=== PATIENT | female | born 1990 | race Caucasian/White ===

== ENCOUNTER 2017-06-25 09:19 | Emergency (ER) | payer OTHER ==
[~2017-06-25] VITALS: Ht 162.6 cm; Wt 54.4 kg
[~2017-06-25 09:19] MED LIST: ALPRAZOLAM1 MG PO; CELEXA10 MG PO; CEPHALEXIN500 MG PO; CITALOPRAM HBR20 MG PO; CYCLOBENZAPRINE10 MG PO; DICYCLOMINE HCL10 MG PO; DOXYCYCLINE HY100 MG PO; GABAPENTIN100 MG PO; HYDROCODON-ACE1 EA11 PO; IBUPROFEN400 MG PO; IBUPROFEN800 MG PO; KEFLEX500 MG PO; NORCO 5-325 TA1 EACH PO; PENICILLIN V P500 MG PO; PYRIDIUM200 MG PO; TRAMADOL HCL50 MG PO; WELLBUTRIN SR100 MG PO; XULANE PATCH1 EACH TD; ZOFRAN ODT4 MG SL; ZOFRAN4 MG PO
== END 2017-06-25 14:38 | disposition left against medical advice (07) ==
LOC: ED 09:19
DX: R10.9 Unspecified abdominal pain (principal); F41.9 Anxiety disorder, unspecified; F32.9 Major depressive disorder, single episode, unspecified; F31.9 Bipolar disorder, unspecified; F43.10 Post-traumatic stress disorder, unspecified; F17.200 Nicotine dependence, unspecified, uncomplicated; Z98.51 Tubal ligation status; Z79.899 Other long term (current) drug therapy; Z88.5 Allergy status to narcotic agent
CPT/HCPCS: 81001; 84703; 99283

== ENCOUNTER 2017-11-29 06:50 | Day surgery (SDC) | payer OTHER ==
[~2017-11-29] VITALS: Ht 162.6 cm; Wt 52.6 kg
[~2017-11-29 06:50] MED LIST changes: +ZOLOFT50 MG PO
--- NOTE | 2017-11-29 08:19 | NUR ---
PT RESTING IN BED WITH FAMILY IN SUPPORT. PT SEEMS ALERT AND ORIENTED, AND FAIRLY CALM. INFORMED REGARDING TODAY, BUT DID HAVE A QUESTION RELATING TO ANESTHESIA. CHINO MAHONEY CAME IN AND VISITED WITH BOTH OF THEM. WILL FOLLOW NEEDED
[2017-11-29] MEDS ORDERED: HYDROCODON-ACE1 EA11 PO (10:06)
[2017-11-29] MEDS ORDERED: DICLOFENAC SODI75 MG PO (10:07)
--- NOTE | 2017-11-29 10:19 | NUR ---
11/29/17 1019 Frannie Nava 1006 PT ARRIVED IN PACU SLEEPY C/O FEELING COLD. SADE PAW ON PT AND WARM BLANKETS.
--- NOTE | 2017-11-29 10:44 | NUR ---
PT BACK TO DS FROM PACU. PT IS AWAKE AND RATHER TALKATIVE. SHE IS UP OOB TO BATHROOM, SHE IS ABLE TO VOID QS WITHOUT ISSUES. CALL LIGHT WITHIN REACH. WATER ON BEDSIDE TABLE. NO OTHER C/O'S AT THIS TIME. WILL REASSESS WITHIN THE HOUR.
--- NOTE | 2017-11-30 08:24 | OR ---
[facility] [address] [facility] [place], [place] [address] Signed DATE OF OPERATION: 11/29/2017 SURGEON: Chalo Marshall MD PREOPERATIVE DIAGNOSIS: Painful hardware, right hand. POSTOPERATIVE DIAGNOSIS: Painful hardware, right hand. PROCEDURE PERFORMED: Removal of hardware, right hip. GRASSLAND CONSERVATIONIST: Amber Gabriel PA-C. Amber was present and critical for positioning, retraction, wound closure, and dressing application. ANESTHESIA: General. BLOOD LOSS: Minimal. TOURNIQUET TIME: 18 minutes. BRIEF HISTORY: Kayley is a 27-year-old female, who had suffered a fracture of her 5th metacarpal. She underwent an uneventful ORIF by me. She healed well, but continued to complain of pain and discomfort in the hand. She wished to have the plate removed. She also wished to have pictures taken of the plate in situ. Risks, benefits, and alternatives of this were discussed with her and she wished to proceed. DESCRIPTION OF PROCEDURE: Once consent was obtained, she was taken to the operating room. After adequate anesthesia, she was placed on operating table. A well-padded proximal arm tourniquet was placed. The arm was prepped and draped in a standard sterile fashion, exsanguinated using Esmarch bandage, and tourniquet inflated to 200 mmHg. The previous incision was marked out and incised longitudinally. The scar tissue was dissected down to the plate. The extensor tendon was carefully retracted and protected throughout the procedure. Electronically Signed By: CHALO MARSHALL MD 11/30/17 0824 PATIENT NAME: KAYLEY KAHN OPERATIVE REPORT DATE OF : 89 PHYSICIAN: CHALO MARSHALL MD REPORT #: [id number] REPORT IS CONFIDENTIAL AND NOT TO BE RELEASED WITHOUT AUTHORIZATION [facility] [address] [place] [id number] Signed The plate was cleaned off soft tissue. We then took the pictures with the patient's phone and removed the screws and the plate. The plate was carefully elevated from the bone. The fracture was completely healed. The screw holes were then curetted and irrigated. The wound was then closed with 3-0 Monocryl. Prior to closing it, we did take pictures again and the plate removed. We closed with 3-0 Monocryl and Dermabond mesh. She was dressed with Xeroform, 4 x 8, and gauze. She tolerated the procedure well. All sponge, needle, and instrument counts were correct. Chalo Marshall MD BA/LUKEL /[id number] Electronically Signed By: CHALO MARSHALL MD 11/30/17 0824 PATIENT NAME: KAYLEY KAHN OPERATIVE REPORT DATE OF : 89 PHYSICIAN: CHALO MARSHALL MD REPORT #: [id number] REPORT IS CONFIDENTIAL AND NOT TO BE RELEASED WITHOUT AUTHORIZATION
== END 2017-11-29 11:45 | disposition home or self-care (01) ==
LOC: DS 06:50 → OPS 06:50 → DS 09:00 → OPS 09:00
PROVIDERS: Specialist
PROC: 0PPP04Z Removal of Internal Fixation Device from Right Metacarpal, Open Approach (ICD-10-PCS; principal; 2017-11-29 09:00)
DX: T84.84XA Pain due to internal orthopedic prosthetic devices, implants and grafts, initial encounter (principal); F32.9 Major depressive disorder, single episode, unspecified; M79.7 Fibromyalgia; F17.200 Nicotine dependence, unspecified, uncomplicated; Z98.51 Tubal ligation status
CPT/HCPCS: 01820; J0690; J1885; J2250; J2405; J2704; J7120

== ENCOUNTER → 2018-02-23 | Emergency (ER) | payer OTHER ==
[~2018-02-23] VITALS: Ht 162.6 cm; Wt 529.3 kg
[~2018-02-23] MED LIST changes: +DICLOFENAC SODI75 MG PO
== END ==
LOC: ED 16:04
DX: R51 Headache (principal); R07.9 Chest pain, unspecified; R10.9 Unspecified abdominal pain; F41.9 Anxiety disorder, unspecified; F32.9 Major depressive disorder, single episode, unspecified; F43.10 Post-traumatic stress disorder, unspecified; G43.909 Migraine, unspecified, not intractable, without status migrainosus; F31.9 Bipolar disorder, unspecified; F17.200 Nicotine dependence, unspecified, uncomplicated; Z79.899 Other long term (current) drug therapy
CPT/HCPCS: 80053; 81001; 84703; 85025; 99283

== ENCOUNTER 2019-03-15 09:39 | Emergency (ER) | payer OTHER ==
[~2019-03-15] VITALS: Ht 162.6 cm; Wt 53.1 kg
[~2019-03-15 09:39] MED LIST changes: +ACETAMINOPHEN-1 EAC1 PO
--- OUTSIDE RECORDS SUMMARY | 2019-03-15 09:42 | XMS ---
PreManage Notification: KENDAL KAHN Security New Car Make Ready Worker Events No recent Security Events currently on file CRITERIA MET - Group Notification CARE PROVIDERS [facility] Treatment Current PHONE: Unknown Kaylen [place] Current Orthopedic Surgery \T\ Fracture Clinic PHONE: Unknown Leticia has no Care Guidelines for this patient. Ethan VISIT COUNT (12 MO.) 2 ER[facility]DA [facility] TOTAL 2 NOTE: Visits indicate total known visits. ED/UCC VISIT TRACKING (12 MO.) 03/15/2019 09:40 [facility] [place] TYPE: Emergency COMPLAINT: - L WRIST PAIN/NO INJURY 07/17/2018 05:44 [facility] [place] TYPE: Emergency COMPLAINT: - R FLANK PAIN DIAGNOSES: - Anxiety disorder, unspecified - Bipolar disorder, unspecified - Unspecified abdominal pain - Migraine, unspecified, not intractable, without status migrainosus - Post-traumatic stress disorder, unspecified - Major depressive disorder, single episode, unspecified - Personal history of nicotine dependence - Urinary tract infection, site not specified - Other skilled nursing (current) drug therapy INPATIENT VISIT TRACKING (12 MO.) No inpatient visits to display in this time frame [id number]
== END 2019-03-15 10:15 | disposition home or self-care (01) ==
LOC: ED 09:39
DX: M25.532 Pain in left wrist (principal)

== ENCOUNTER 2021-11-07 18:57 | Emergency (ER) | payer OTHER ==
[~2021-11-07] VITALS: Ht 162.6 cm; Wt 54.9 kg
--- OUTSIDE RECORDS SUMMARY | 2021-11-07 19:04 | XMS ---
PreManage Notification: KENDAL LOPEZ Security Process Helper Events No recent Security Events currently on file CRITERIA MET - Group Notification CARE PROVIDERS REED FARIA Physician Director [facility] Current PHONE: [phone] Leticia has no Care Guidelines for this patient. EMolly VISIT COUNT (12 MO.) 1 ERMELINDA Martin TOTAL 1 NOTE: Visits indicate total known visits. ED/UCC VISIT TRACKING (12 MO.) 11/07/2021 18:[address] [facility] [place] TYPE: Emergency COMPLAINT: - ABD PAIN INPATIENT VISIT TRACKING (12 MO.) No inpatient visits to display in this time frame [id number]
[2021-11-07] MEDS ORDERED: MOBIC15 MG PO (22:28)
[2021-11-07] MEDS ORDERED: CEFDINIR300 MG PO (22:28)
[2021-11-07] MEDS ORDERED: ONDANSETRON ODT8 MG PO (22:28)
== END 2021-11-07 23:40 | disposition home or self-care (01) ==
LOC: ED 18:57
DX: N12 Tubulo-interstitial nephritis, not specified as acute or chronic (principal); M79.7 Fibromyalgia; G43.909 Migraine, unspecified, not intractable, without status migrainosus; F17.200 Nicotine dependence, unspecified, uncomplicated; Z20.822 Contact with and (suspected) exposure to COVID-19; Z88.5 Allergy status to narcotic agent; Z88.6 Allergy status to analgesic agent
CPT/HCPCS: 74177; 80048; 81001; 83605; 84703; 85025; 96375; 99284-25; C9803; J0696; J2060; J2405; J7030; Q9967; U0003

== ENCOUNTER 2022-02-13 14:57 | Emergency (ER) | payer OTHER ==
[~2022-02-13] VITALS: Ht 162.6 cm; Wt 56.5 kg
[~2022-02-13 14:57] MED LIST changes: +CEFDINIR300 MG PO; +MOBIC15 MG PO; +ONDANSETRON ODT8 MG PO
--- OUTSIDE RECORDS SUMMARY | 2022-02-13 15:04 | XMS ---
PreManage Notification: KENDAL LOPEZ Security Entry Level Software Developer Events No recent Security Events currently on file CRITERIA MET - Group Notification CARE PROVIDERS REED FARIA Physician Director Surface Transportation 03/16/2019-Current PHONE: [phone] Leticia has no Care Guidelines for this patient. E.[place] VISIT COUNT (12 MO.) 2 ERMELINDA Martin TOTAL 2 NOTE: Visits indicate total known visits. ED/UCC VISIT TRACKING (12 MO.) 02/13/2022 14:57 [facility] [place] TYPE: Emergency COMPLAINT: - SUICIDAL IDEATIONS 11/07/2021 18:58 [facility] [place] TYPE: Emergency COMPLAINT: - ABD PAIN DIAGNOSES: - Allergy status to analgesic agent - Tubulo-interstitial nephritis, not specified as acute or chronic - Nicotine dependence, unspecified, uncomplicated - Allergy status to narcotic agent - Migraine, unspecified, not intractable, without status migrainosus - Fibromyalgia - Unspecified abdominal pain - Other stimulant use, unspecified, uncomplicated INPATIENT VISIT TRACKING (12 MO.) No inpatient visits to display in this time frame [id number]
[2022-02-13] MEDS ORDERED: DOXYCYCLINE HY100 MG PO (16:40)
== END 2022-02-13 22:20 | disposition home or self-care (01) ==
LOC: ED 14:57
DX: S61.512A Laceration without foreign body of left wrist, initial encounter (principal); L02.214 Cutaneous abscess of groin; X78.9XXA Intentional self-harm by unspecified sharp object, initial encounter; G43.909 Migraine, unspecified, not intractable, without status migrainosus; F17.200 Nicotine dependence, unspecified, uncomplicated; Z88.5 Allergy status to narcotic agent; Z88.8 Allergy status to other drugs, medicaments and biological substances; Z79.899 Other long term (current) drug therapy
CPT/HCPCS: 10060; 12004; 36415; 80053; 81001; 84443; 84703; 85025; 87088; 99285-25; G0480

== ENCOUNTER 2022-02-14 15:07 | Emergency (ER) | payer OTHER ==
[~2022-02-14] VITALS: Ht 162.6 cm; Wt 56.5 kg
--- OUTSIDE RECORDS SUMMARY | 2022-02-14 15:14 | XMS ---
PreManage Notification: KENDAL LOPEZ Security Brass Polisher Events No recent Security Events currently on file CRITERIA MET - Group Notification - [facility] - 2 Visits in 30 Days CARE PROVIDERS REED FARIA Physician Provider Education Specialist 03/16/2019-Current PHONE: [phone] Leticia has no Care Guidelines for this patient. Ethan VISIT COUNT (12 MO.) 3 [facility] TOTAL 3 NOTE: Visits indicate total known visits. ED/UCC VISIT TRACKING (12 MO.) 02/14/2022 15:08 [facility] [place] TYPE: Emergency COMPLAINT: - SKIN PROBLEM 02/13/2022 14:57 [facility] [place] TYPE: Emergency COMPLAINT: - SUICIDAL IDEATIONS 11/07/2021 18:58 [facility] [place] TYPE: Emergency COMPLAINT: - ABD PAIN DIAGNOSES: - Allergy status to analgesic agent - Tubulo-interstitial nephritis, not specified as acute or chronic - Nicotine dependence, unspecified, uncomplicated - Allergy status to narcotic agent - Migraine, unspecified, not intractable, without status migrainosus - Fibromyalgia - Contact with and (suspected) exposure to COVID-19 - Unspecified abdominal pain - Other stimulant use, unspecified, uncomplicated INPATIENT VISIT TRACKING (12 MO.) No inpatient visits to display in this time frame [id number]
== END 2022-02-14 16:47 | disposition home or self-care (01) ==
LOC: ED 15:07
DX: L02.214 Cutaneous abscess of groin (principal); L53.9 Erythematous condition, unspecified; G43.909 Migraine, unspecified, not intractable, without status migrainosus; F17.200 Nicotine dependence, unspecified, uncomplicated; Z88.5 Allergy status to narcotic agent; Z88.8 Allergy status to other drugs, medicaments and biological substances; Z79.899 Other long term (current) drug therapy
CPT/HCPCS: 99282

== ENCOUNTER 2023-01-22 13:52 | Emergency (ER) | payer OTHER ==
[~2023-01-22] VITALS: Ht 162.6 cm; Wt 55.3 kg
--- OUTSIDE RECORDS SUMMARY | 2023-01-22 14:00 | XMS ---
PreManage Notification: KENDAL LOPEZ Security Transportation Planner Events No recent Security Events currently on file CRITERIA MET - Group Notification CARE PROVIDERS -Abdi- Dentist: Sales Project Manager [facility] PHONE: [phone] REED FARIA Physician 03/16/2019-Current PHONE: Unknown Leticia has no Care Guidelines for this patient. Ethan VISIT COUNT (12 MO.) 3 ERMELINDA Martin TOTAL 3 NOTE: Visits indicate total known visits. ED/UCC VISIT TRACKING (12 MO.) 01/22/2023 13:53 [facility] [place] TYPE: Emergency COMPLAINT: - GROIN SKIN PROBLEM 02/14/2022 15:08 [facility] [place] TYPE: Emergency COMPLAINT: - SKIN PROBLEM DIAGNOSES: - Allergy status to other drugs, medicaments and biological substances - Other mcc (current) drug therapy - Erythematous condition, unspecified - Cutaneous abscess of groin - Allergy status to narcotic agent - Encounter for surgical aftercare following surgery on the skin and subcutaneous tissue - Nicotine dependence, unspecified, uncomplicated - Encounter for surgical aftercare following surgery on the skin and subcutaneous tissue - Right lower quadrant pain - Migraine, unspecified, not intractable, without status migrainosus 02/13/2022 14:[address] [facility] [place] TYPE: Emergency COMPLAINT: - SUICIDAL IDEATIONS DIAGNOSES: - Migraine, unspecified, not intractable, without status migrainosus - Laceration without foreign body of left wrist, initial encounter - Nicotine dependence, unspecified, uncomplicated - Intentional self-harm by unspecified sharp object, initial encounter - Suicidal ideations - Cutaneous abscess of groin - Allergy status to other drugs, medicaments and biological substances - Allergy status to narcotic agent - Other vp informatics (current) drug therapy INPATIENT VISIT TRACKING (12 MO.) No inpatient visits to display in this time frame [id number]
[2023-01-22] MEDS ORDERED: BACTRIM DS TAB1 EACH PO (16:00)
[2023-01-22 16:10] VITALS: BP 128/98
== END 2023-01-22 16:05 | disposition home or self-care (01) ==
LOC: ED 13:52
DX: L02.214 Cutaneous abscess of groin (principal); F17.200 Nicotine dependence, unspecified, uncomplicated; Z88.5 Allergy status to narcotic agent; Z88.6 Allergy status to analgesic agent
CPT/HCPCS: 10060; 99282-25

== ENCOUNTER 2023-04-14 16:17 | Emergency (ER) | payer OTHER ==
[~2023-04-14] VITALS: Ht 170.2 cm; Wt 49.9 kg
[~2023-04-14 16:17] MED LIST changes: +BACTRIM DS TAB1 EACH PO
[2023-04-14] MEDS ORDERED: AMOX TR-K CLV1 EAC1 PO (18:25)
[2023-04-14] MEDS ORDERED: HYDROCODON-ACE1 EA10 PO (18:25)
[2023-04-14 18:34] VITALS: BP 124/87
== END 2023-04-14 18:35 | disposition home or self-care (01) ==
LOC: ED 16:17
DX: S61.451A Open bite of right hand, initial encounter (principal); W54.0XXA Bitten by dog, initial encounter
CPT/HCPCS: 73130; 96374; 96375; 96376; 99283 25; J0295; J1170; J1885

== ENCOUNTER 2024-08-20 12:24 | Emergency (ER) | payer OTHER ==
[~2024-08-20] VITALS: Ht 170.2 cm; Wt 58.3 kg
[~2024-08-20 12:24] MED LIST changes: +AMOX TR-K CLV1 EAC1 PO; +HYDROCODON-ACE1 EA10 PO
--- OUTSIDE RECORDS SUMMARY | 2024-08-20 12:28 | XMS ---
PreManage Notification: KENDAL KAHN Security Sole Conditioner Events No recent Security Events currently on file CRITERIA MET - Group Notification CARE PROVIDERS -, [facility] Dentist: Retail Sales Representative [facility] PHONE: [phone] -Abdi- Dentist: Retail Sales Representative [facility] PHONE: [phone] Leticia has no Care Guidelines for this patient. Ethan VISIT COUNT (12 MO.) 2 ERMELINDA Martin TOTAL 2 NOTE: Visits indicate total known visits. ED/UCC VISIT TRACKING (12 MO.) 08/20/2024 12:25 [facility] [place] TYPE: Emergency COMPLAINT: - FLANK PAIN 02/03/2024 10:22 [facility] [place] TYPE: Emergency COMPLAINT: - DOG BITE, R HAND INPATIENT VISIT TRACKING (12 MO.) No inpatient visits to display in this time frame [id number]
[2024-08-20] MEDS ORDERED: ondansetron HCL 4 MG/2 ML VIAL IV ONE (12:45)
[2024-08-20] MEDS ORDERED: MORPHINE SULFATE 4 MG/ML VIAL IV ONE ×2 (12:45→14:00)
[2024-08-20 12:49] LABS: BILIRUBIN, URINE NEGATIVE (negative); BLOOD/HGB, URINE LARGE (Negative); KETONE, URINE NEGATIVE (Negative); LEUK ESTERASE, URINE SMALL (negative); NITRITE, URINE POSITIVE (negative)
[2024-08-20 12:56] LABS: BACTERIA, URINE 3+ /hpf (negative); CASTS, URINE NONE SEEN \\lpf; COLLECTION TYPE, URINE CLEAN CATCH; CRYSTALS, URINE NONE SEEN (0-1+); REFLEX CULTURE, URINE Yes (No); WHITE BLOOD CELLS, URINE >50 /HPF (0-5)
[2024-08-20] MEDS ORDERED: SODIUM CHLORIDE 0.9% 1,000 ML IV PRN (13:00)
[2024-08-20 13:19] LABS: BASOPHILS 0.3 % (0-2); HEMATOCRIT 37.4 % (35.0-50.0); HEMOGLOBIN 12.8 g/dL (12.0-18.0); LYMPHOCYTES 11.7 % (24-44); MCH 29.9 (27-36); MCHC 34.2 g/dl (30-36); MCV 87.5 fl (81-99); PLATELET COUNT 224 K/uL (140-440); RBC 4.28 M/ul (4.3-5.7); RDW 12.9 (10.5-15.0)
[2024-08-20 13:33] LABS: ALBUMIN 3.4 g/dL (3.4-5.0); ALBUMIN/GLOBULIN RATIO 1.06 (1.1-2.4); ANION GAP 11.9 (7-21); BILIRUBIN, TOTAL 0.4 ng/dL (0.2-1.0); BUN/CREATININE RATIO 14.28 (6.0-28.6); CALCIUM 8.6 mg/dL (8.5-10.1); CREATININE, SERUM 0.77 mg/dL (0.55-1.02); POTASSIUM 3.9 mmol/L (3.5-5.1); PROTEIN, TOTAL 6.6 g/dL (6.4-8.2)
[2024-08-20] MEDS ORDERED: KETOROLAC TROMETHAMINE 30 MG/ML VIAL IV ONE (14:30)
[2024-08-20] MEDS ORDERED: CEFTRIAXONE/SODIUM CHLORIDE 1 GM/100 ML PIGGYBACK IV ONE (14:30)
[2024-08-20] MEDS ORDERED: CEPHALEXIN500 MG PO (14:47)
[2024-08-20] MEDS ORDERED: HYDROCODON-ACE1 EA10 PO (14:47)
[2024-08-20 15:07] VITALS: BP 113/73
== END 2024-08-20 15:07 | disposition home or self-care (01) ==
LOC: ED 12:24
PROVIDERS: Emergency Medicine
DX: N12 Tubulo-interstitial nephritis, not specified as acute or chronic (principal); N20.0 Calculus of kidney; F17.200 Nicotine dependence, unspecified, uncomplicated; Z88.5 Allergy status to narcotic agent; Z88.6 Allergy status to analgesic agent
CPT/HCPCS: 36415; 74176; 80053; 81001; 83690; 84703; 85025; 87077; 87088; 87186; 96365; 96375; 96376; 99284-25; J0696; J1885; J2270; J2405; J7030

== ENCOUNTER 2024-11-29 11:27 | Emergency (ER) | payer OTHER ==
[~2024-11-29] VITALS: Ht 170.2 cm; Wt 58.5 kg
--- OUTSIDE RECORDS SUMMARY | 2024-11-29 11:29 | XMS ---
PreManage Notification: KENDAL KAHN Security Mathematician Research Events No recent Security Events currently on file CRITERIA MET - Group Notification CARE PROVIDERS -, [facility] Dentist: Paint Grinder [facility] PHONE: [phone] -Abdi- Dentist: Paint Grinder [facility] PHONE: [phone] Leticia has no Care Guidelines for this patient. Ethan VISIT COUNT (12 MO.) 3 ERMELINDA Martin TOTAL 3 NOTE: Visits indicate total known visits. ED/UCC VISIT TRACKING (12 MO.) 11/29/2024 11:28 [facility] [place] TYPE: Emergency COMPLAINT: - NECK PAIN 08/20/2024 12:25 [facility] [place] TYPE: Emergency COMPLAINT: - FLANK PAIN DIAGNOSES: - Allergy status to analgesic agent - Allergy status to narcotic agent - Calculus of kidney - Frequency of micturition - Nicotine dependence, unspecified, uncomplicated - Tubulo-interstitial nephritis, not specified as acute or chronic - Unspecified abdominal pain 02/03/2024 10:[address] [facility] [place] TYPE: Emergency COMPLAINT: - DOG BITE, R HAND INPATIENT VISIT TRACKING (12 MO.) No inpatient visits to display in this time frame [id number]
[2024-11-29] MEDS ORDERED: NAPROSYN500 MG PO (12:47)
[2024-11-29 12:52] VITALS: BP 99/56
== END 2024-11-29 12:30 | disposition home or self-care (01) ==
LOC: ED 11:27
DX: M76.9 Unspecified enthesopathy, lower limb, excluding foot (principal); F17.200 Nicotine dependence, unspecified, uncomplicated; Z88.5 Allergy status to narcotic agent; Z88.6 Allergy status to analgesic agent; Z79.899 Other long term (current) drug therapy
CPT/HCPCS: 73502; 99283

== ENCOUNTER 2024-12-03 17:57 | Emergency (ER) | payer OTHER ==
[~2024-12-03] VITALS: Ht 170.2 cm; Wt 56.2 kg
[~2024-12-03 17:57] MED LIST changes: +NAPROSYN500 MG PO
--- OUTSIDE RECORDS SUMMARY | 2024-12-03 18:04 | XMS ---
PreManage Notification: KENDAL KAHN Security Stick Puller Events No recent Security Events currently on file CRITERIA MET - Group Notification - [facility] - 2 Visits in 30 Days CARE PROVIDERS -[facility] Dentist: Communications Engineer [facility] PHONE: [phone] -Abdi- Dentist: Communications Engineer [facility] PHONE: [phone] Leticia has no Care Guidelines for this patient. EMolly VISIT COUNT (12 MO.) [address] [place] [address] TOTAL 4 NOTE: Visits indicate total known visits. ED/UCC VISIT TRACKING (12 MO.) 12/03/2024 17:57 [facility]DA [facility] [place] TYPE: Emergency COMPLAINT: - WORK CLEARANCE 11/29/2024 11:28 [facility] [place] TYPE: Emergency COMPLAINT: - NECK PAIN DIAGNOSES: - Allergy status to analgesic agent - Allergy status to narcotic agent - Nicotine dependence, unspecified, uncomplicated - Other detention (current) drug therapy - Pain in left hip - Unspecified enthesopathy, lower limb, excluding foot 08/20/2024 12:25 [facility] [place] TYPE: Emergency COMPLAINT: - FLANK PAIN DIAGNOSES: - Allergy status to analgesic agent - Allergy status to narcotic agent - Calculus of kidney - Frequency of micturition - Nicotine dependence, unspecified, uncomplicated - Tubulo-interstitial nephritis, not specified as acute or chronic - Unspecified abdominal pain 02/03/2024 10:22 [facility] [place] TYPE: Emergency COMPLAINT: - DOG BITE, R HAND INPATIENT VISIT TRACKING (12 MO.) No inpatient visits to display in this time frame [id number]
[2024-12-03 18:23] VITALS: BP 116/74
== END 2024-12-03 18:23 | disposition home or self-care (01) ==
LOC: ED 17:57
DX: Z02.79 Encounter for issue of other medical certificate (principal); F17.200 Nicotine dependence, unspecified, uncomplicated; Z88.5 Allergy status to narcotic agent; Z88.6 Allergy status to analgesic agent; Z79.1 Long term (current) use of non-steroidal anti-inflammatories (NSAID)
CPT/HCPCS: 99281

== ENCOUNTER 2025-04-08 14:06 | Emergency (ER) | payer OTHER ==
[~2025-04-08] VITALS: Ht 162.6 cm; Wt 48.1 kg
--- OUTSIDE RECORDS SUMMARY | 2025-04-08 14:14 | XMS ---
PreManage Notification: KENDAL KAHN Security Architectural Project Captain Events No recent Security Events currently on file CRITERIA MET - Group Notification CARE PROVIDERS -, [facility] Dentist: Intel Analyst [facility] PHONE: [phone] -Abdi- Dentist: Intel Analyst [facility] PHONE: [phone] Leticia has no Care Guidelines for this patient. Ethan VISIT COUNT (12 MO.) 4 ERMELINDA Martin TOTAL 4 NOTE: Visits indicate total known visits. ED/UCC VISIT TRACKING (12 MO.) 04/08/2025 14:07 [facility] [place] TYPE: Emergency COMPLAINT: - HEADACHE, NAUSEA 12/03/2024 17:57 [facility] [place] TYPE: Emergency COMPLAINT: - WORK CLEARANCE DIAGNOSES: - Allergy status to analgesic agent - Allergy status to narcotic agent - Encounter for issue of other medical certificate - care home (current) use of non-steroidal anti-inflammatories (NSAID) - Nicotine dependence, unspecified, uncomplicated 11/29/2024 11:28 [facility] [place] TYPE: Emergency COMPLAINT: - NECK PAIN DIAGNOSES: - Allergy status to analgesic agent - Allergy status to narcotic agent - Nicotine dependence, unspecified, uncomplicated - Other keno terminal operator (current) drug therapy - Pain in left [...] acute or chronic - Unspecified abdominal pain INPATIENT VISIT TRACKING (12 MO.) No inpatient visits to display in this time frame [id number]
[2025-04-08] MEDS ORDERED: NALTREXONE HCL50 MG PO (14:28)
[2025-04-08] MEDS ORDERED: KETOROLAC TROMETHAMINE 30 MG/ML VIAL IV ONE (15:15)
[2025-04-08] MEDS ORDERED: SODIUM CHLORIDE 0.9% 1,000 ML IV ONE (15:15)
[2025-04-08] MEDS ORDERED: ondansetron HCL 4 MG/2 ML VIAL IV PRN (15:15)
[2025-04-08 15:23] LABS: BASOPHILS 0.4 % (0.1-1.2); EOSINOPHILS 1.4 % (0.7-5.8); HEMATOCRIT 40.4 % (34.1-44.9); HEMOGLOBIN 13.6 g/dL (11.2-15.7); LYMPHOCYTES 21.3 % (19.3-51.7); MCHC 33.7 g/dL (32.2-35.5); MCV 86.1 fL (79.4-94.8); MONOCYTES 8.9 % (4.7-12.5); NEUTROPHILS 67.8 % (34.0-71.1); PLATELET COUNT 231 K/uL (182-369); RBC 4.69 M/uL (3.93-5.22)
[2025-04-08 15:38] LABS: ALBUMIN 3.6 g/dL (3.4-5.0); ALBUMIN/GLOBULIN RATIO 1.13 (1.1-2.4); BILIRUBIN, TOTAL 1.1 mg/dL (0.2-1.0); BUN/CREATININE RATIO 13.95 (6.0-28.6); CALCIUM 8.8 mg/dL (8.5-10.1); CREATININE, SERUM 0.86 mg/dL (0.55-1.02); PROTEIN, TOTAL 6.8 g/dL (6.4-8.2)
[2025-04-08 16:48] LABS: BILIRUBIN, URINE NEGATIVE (negative); BLOOD/HGB, URINE MODERATE (Negative); KETONE, URINE TRACE (Negative); LEUK ESTERASE, URINE NEGATIVE (negative); NITRITE, URINE NEGATIVE (negative); PH, URINE 6.5 (5-7)
[2025-04-08 16:53] LABS: BACTERIA, URINE NONE SEEN /hpf (negative); CASTS, URINE NONE SEEN \\lpf; COLLECTION TYPE, URINE CLEAN CATCH; CRYSTALS, URINE AMORPHOUS URATES 2+ (0-1+); RED BLOOD CELLS, URINE 21-40 /hpf (0-5); REFLEX CULTURE, URINE No (No)
[2025-04-08 17:12] VITALS: BP 120/94
== END 2025-04-08 17:12 | disposition home or self-care (01) ==
LOC: ED 14:06
PROVIDERS: Emergency Medicine
DX: R51.9 Headache, unspecified (principal); R31.9 Hematuria, unspecified; F17.200 Nicotine dependence, unspecified, uncomplicated; Z79.899 Other long term (current) drug therapy; Z88.5 Allergy status to narcotic agent; Z88.8 Allergy status to other drugs, medicaments and biological substances
CPT/HCPCS: 36415; 80053; 81001; 84703; 85025; 96374; 96375; 99283-25; J1885; J2405; J7030

== ENCOUNTER 2025-04-26 14:38 | Emergency (ER) | payer OTHER ==
[~2025-04-26] VITALS: Ht 162.6 cm; Wt 50.2 kg
[~2025-04-26 14:38] MED LIST changes: +NALTREXONE HCL50 MG PO
--- OUTSIDE RECORDS SUMMARY | 2025-04-26 14:39 | XMS ---
PreManage Notification: KENDAL KAHN Security Radiographic Technologist Events No recent Security Events currently on file CRITERIA MET - Group Notification - [facility] - 2 Visits in 30 Days CARE PROVIDERS -[facility] Dentist: Jet Operator [facility] PHONE: [phone] -Abdi- Dentist: Jet Operator [facility] PHONE: [phone] Leticia has no Care Guidelines for this patient. EMolly VISIT COUNT (12 MO.) [address] [place] [address] TOTAL 5 NOTE: Visits indicate total known visits. ED/UCC VISIT TRACKING (12 MO.) 04/26/2025 14:39 [facility] [place] TYPE: Emergency COMPLAINT: - SKIN PROBLEM 04/08/2025 14:07 [facility] [place] TYPE: Emergency COMPLAINT: - HEADACHE, NAUSEA DIAGNOSES: - Allergy status to narcotic agent - Allergy status to other drugs, medicaments and biological substances - Headache, unspecified - Hematuria, unspecified - Nicotine dependence, unspecified, uncomplicated - Other detention (current) drug therapy 12/03/2024 17:57 [facility] [place] TYPE: Emergency COMPLAINT: - WORK CLEARANCE DIAGNOSES: - Allergy status to analgesic agent - Allergy status to narcotic agent - Encounter for issue of other medical certificate - ferry terminal agent (current) use of non-steroidal anti-inflammatories (NSAID) - Nicotine dependence, unspecified, uncomplicated 11/29/2024 11:28 [facility] [place] TYPE: Emergency COMPLAINT: - NECK PAIN DIAGNOSES: - Allergy status to analgesic agent - Allergy status to narcotic agent - Nicotine dependence, unspecified, uncomplicated - Other ferry terminal agent (current) drug therapy - Pain in left [...] visits to display in this time frame [id number]
[2025-04-26] MEDS ORDERED: KETOROLAC TROMETHAMINE 15 MG/ML VIAL IM ONE (15:30)
[2025-04-26] MEDS ORDERED: CEPHALEXIN500 M1 PO (17:50)
[2025-04-26] MEDS ORDERED: CEPHALEXIN MONOHYDRATE 500 MG HOME.PACK PO ONE (18:00)
[2025-04-26 18:10] VITALS: BP 116/68
== END 2025-04-26 18:10 | disposition home or self-care (01) ==
LOC: ED 14:38
DX: L02.31 Cutaneous abscess of buttock (principal); F17.200 Nicotine dependence, unspecified, uncomplicated; Z88.5 Allergy status to narcotic agent; Z88.1 Allergy status to other antibiotic agents
CPT/HCPCS: 10060; 99283-25; A9270; J1885